=== PATIENT | male | born 1990 | race American Indian/Alaskan Native ===

== ENCOUNTER 2017-09-13 12:42 | Emergency (ER) | payer OTHER ==
[2017-09-13 13:17] VITALS: BP 121/82
[2017-09-13] MEDS ORDERED: ASPIRIN PO ONE (13:18)
[2017-09-13 14:30] LABS: Basophils # (Auto) 0.1 K/mm3 (0.0-0.1); Basophils % (Auto) 0.6 % (0.0-1.8); Eosinophils # (Auto) 0.2 K/mm3 (0.0-0.4); Eosinophils % (Auto) 2.3 % (0.0-4.3); Hematocrit 54.4 % (35.5-45.6); Hemoglobin 18.3 gm/dl (11.8-15.2); Lymphocytes # (Auto) 4.4 K/mm3 (1.2-5.4); Lymphocytes % (Auto) 42.6 % (13.4-35.0); Mean Corpuscular HGB Conc 34 % (32-34); Mean Corpuscular Hemoglobin 33 pg (28-32); Mean Corpuscular Volume 97 fl (84-94); Monocytes % (Auto) 9.5 % (0.0-7.3); Platelet Count 176 K/mm3 (140-440); Red Blood Count 5.61 M/mm3 (3.65-5.03); Red Cell Distribution Width 12.8 % (13.2-15.2)
[2017-09-13 14:54] LABS: BUN/Creatinine Ratio 16; Blood Urea Nitrogen 16 mg/dL (9-20); Calcium 9.8 mg/dL (8.4-10.2); Hemolysis Index 128
[2017-09-13 15:10] LABS: Chol/HDL Ratio 1.45 %; HDL Cholesterol 81 mg/dL (40-59); LDL Cholesterol,Direct 23 mg/dL (50-130)
== END 2017-09-13 19:34 | disposition left against medical advice (07) ==
LOC: ED 12:42
DX: R07.9 Chest pain, unspecified (principal); Z53.21 Procedure and treatment not carried out due to patient leaving prior to being seen by health care provider
CPT/HCPCS: 36415; 80048; 80061; 84484; 85025; 85379; 93005; 93010

== ENCOUNTER 2018-03-05 10:35 | Emergency (ER) | payer SELFPAY ==
[2018-03-05 11:11] VITALS: BP 131/86
--- NOTE | 2018-03-05 12:11 | Emergency Department Report ---
Chief Complaint: Urogenital-Male Stated Complaint: STD CHECK/PENILE DISCHARGE Time Seen by Provider: 03/05/18 12:05 - HPI History of Present Illness: Patient reports penile discharge that started 2 days ago. He is currently sexually active with one partner and does not use any condoms. He denies dysuria , testicular pain, lesions, warts, knee or abdominal pain - ROS Review of Systems: All other systems unremarkable except for documentation in HPI - Exam Vital Signs: Vital Signs 03/05/18 11:05 Temperature 98.5 F Pulse Rate 90 Respiratory 15 Rate Blood Pressure 131/86 O2 Sat by Pulse 97 Oximetry Physical Exam: General: Active, alert, no distress or discomfort noted Neuro: Alert and oriented 3, MAEW Cardio: Heart sounds S1 and S2, no ectopy, murmur, Respiratory: Even and unlabored, no difficulty in breathing, wheezes or rales Abdominal: Soft, nondistended, bowel sounds normal, no tenderness, ascites, MSE screening note: Focused history and physical exam performed. Due to findings the following was ordered: Patient was referred to the [facility], [place] [facility] or [facility] ED Disposition for MSE Condition: Stable Referrals: PRIMARY CARE, [Primary Care Provider] - 3-5 Days
[2018-03-05 12:15] LABS: Bilirubin,Urine NEG (Negative); Blood,Urine NEG (Negative); Color,Urine Yellow (Yellow); Mucus,Urine 2+ /HPF; Protein,Urine <15 mg/dL mg/dL (Negative); Urobilinogen,Urine < 2.0 mg/dL (<2.0)
== END 2018-03-05 12:13 ==
LOC: ED 10:35
DX: R36.9 Urethral discharge, unspecified (principal)
CPT/HCPCS: 81001; 99282